=== PATIENT | male | born 1945 | race Caucasian/White ===

== ENCOUNTER 2016-12-23 05:28 | Inpatient (IN) | payer OTHER ==
[~2016-12-23] VITALS: Ht 172.7 cm; Wt 118.0 kg
[~2016-12-23 05:28] MED LIST: ASPIRIN81 M2 PO; FERROUS SULFAT325 MG PO; HYDROCHLOROTHIA25 MG PO; LIPITOR20 MG PO; METOPROLOL TART50 MG PO; MULTIPLE VITAM1 EACH PO; NEURONTIN300 MG PO; NITROGLYCERIN0.4 MG SL; NORVASC5 MG PO; OMEPRAZOLE20 MG PO; PLAVIX75 MG PO; ROBAXIN500 MG PO; TRAMADOL HCL50 MG PO; VALSARTAN160 MG PO
[2016-12-23 06:36] VITALS: BP 175/84
[2016-12-23 13:00] VITALS: BP 115/62
[2016-12-23 15:43] VITALS: BP 136/72
[2016-12-23 19:41] VITALS: BP 136/78
[2016-12-23 23:38] VITALS: BP 128/70
[2016-12-24 03:36] VITALS: BP 174/73
[2016-12-24 03:41] VITALS: BP 122/76
[2016-12-24 06:37] LABS: HEMATOCRIT 35.9 % (38.0-50.0); MCV 87.1 FL (86-99)
[2016-12-24 08:48] VITALS: BP 135/70
[2016-12-24] MEDS ORDERED: BENADRYL25 MG PO (09:36)
[2016-12-24] MEDS ORDERED: TYLENOL REGULA325 MG PO (09:38)
[2016-12-24] MEDS ORDERED: SENNA PLUS TAB1 EACH PO (09:38)
[2016-12-24] MEDS ORDERED: CELECOXIB200 MG PO (09:39)
[2016-12-24] MEDS ORDERED: LIDOCAINE700 MG TD (09:39)
[2016-12-24] MEDS ORDERED: OXYCODONE HCL5 MG PO (09:39)
== END 2016-12-24 11:58 | disposition home or self-care (01) | DRG 483 ==
LOC: 2SOUTH 05:28 → 3EAST 05:28 → 2SOUTH 09:20 → 3EAST 11:52 → 2SOUTH 12:04 → 3EAST 12-24 11:58
PROVIDERS: Orthopaedic Surgery
PROC: 0RRJ00Z Replacement of Right Shoulder Joint with Reverse Ball and Socket Synthetic Substitute, Open Approach (ICD-10-PCS; principal; 2016-12-23)
PROC: 3E0T3BZ Introduction of Anesthetic Agent into Peripheral Nerves and Plexi, Percutaneous Approach (ICD-10-PCS; 2016-12-23)
DX: M19.011 Primary osteoarthritis, right shoulder (principal); M75.101 Unspecified rotator cuff tear or rupture of right shoulder, not specified as traumatic; I11.0 Hypertensive heart disease with heart failure; I50.9 Heart failure, unspecified; K21.9 Gastro-esophageal reflux disease without esophagitis; G47.30 Sleep apnea, unspecified; Z87.891 Personal history of nicotine dependence; I25.2 Old myocardial infarction; Z95.1 Presence of aortocoronary bypass graft; Z95.5 Presence of coronary angioplasty implant and graft; Z79.02 Long term (current) use of antithrombotics/antiplatelets; Z79.82 Long term (current) use of aspirin
CPT/HCPCS: 73020; 85014; 85018; 94799; C1713; J0131; J0330; J0461; J0690; J1170; J2250; J2795; J3010; J7050; J7120; P9045

== ENCOUNTER 2017-01-02 04:35 | Emergency (ER) | payer OTHER ==
[~2017-01-02] VITALS: Ht 172.7 cm; Wt 115.1 kg
[~2017-01-02 04:35] MED LIST changes: +BENADRYL25 MG PO; +CELECOXIB200 MG PO; +LIDOCAINE700 MG TD; +OXYCODONE HCL5 MG PO; +SENNA PLUS TAB1 EACH PO; +TYLENOL REGULA325 MG PO
[2017-01-02 05:33] LABS: HEMATOCRIT 32.6 % (38.0-50.0); MCH 29.9 PG (29.0-34.0); MCHC 33.4 G/DL (30.0-36.0); MCV 89.3 FL (86-99); MEAN PLAT.VOLUME 8.3 uM^3 (9.0-12.4); PLATELET COUNT 275 K/uL (156-360); RBC DIS.WIDTH-CV 14.5 % (11.8-14.6); RBC DIS.WIDTH-SD 46.3 % (39-53); RED BLOOD COUNT 3.65 M/uL (4.00-5.50); WHITE BLOOD COUNT 6.4 K/uL (4.1-10.2)
[2017-01-02 05:41] LABS: CHLORIDE 106 mEq/L (99-109); POTASSIUM 4.1 mEq/L (3.7-5.4); SODIUM 141 mEq/L (136-147)
[2017-01-02 05:42] LABS: GLUCOSE 99 mg/dL (70-99)
[2017-01-02 05:44] LABS: ANION GAP 10 MEQ/L (2-14)
[2017-01-02 05:46] LABS: GFR ESTIMATE (CALCULATED) > 59 mL/min/
[2017-01-02 05:47] LABS: UREA NITROGEN (BUN) 15 mg/dL (9-23)
[2017-01-02 05:55] VITALS: BP 146/87
== END 2017-01-02 06:06 | disposition home or self-care (01) ==
LOC: EME 04:35
PROVIDERS: Emergency Medicine
DX: M96.830 Postprocedural hemorrhage of a musculoskeletal structure following a musculoskeletal system procedure (principal); Y83.8 Other surgical procedures as the cause of abnormal reaction of the patient, or of later complication, without mention of misadventure at the time of the procedure; Z79.01 Long term (current) use of anticoagulants; I25.2 Old myocardial infarction; I50.9 Heart failure, unspecified; Z95.1 Presence of aortocoronary bypass graft; Z87.442 Personal history of urinary calculi; Z87.891 Personal history of nicotine dependence
CPT/HCPCS: 80048; 85027; 99281; 99283